=== PATIENT | male | born 1975 | race Caucasian/White ===

== ENCOUNTER 2019-03-02 06:23 | Emergency (ER) | payer OTHER ==
[2019-03-02 06:36] VITALS: BP 139/63; PULSE 94; RESP 18; TEMP 98.4
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
== END 2019-03-02 07:11 | disposition home or self-care (01) ==
LOC: EC 06:23
DX: H60.91 Unspecified otitis externa, right ear (principal); H92.21 Otorrhagia, right ear; E11.9 Type 2 diabetes mellitus without complications; E78.5 Hyperlipidemia, unspecified; I10 Essential (primary) hypertension; G47.30 Sleep apnea, unspecified; F17.200 Nicotine dependence, unspecified, uncomplicated; Z88.1 Allergy status to other antibiotic agents; Z88.8 Allergy status to other drugs, medicaments and biological substances; Z79.4 Long term (current) use of insulin; Z79.82 Long term (current) use of aspirin; Z79.899 Other long term (current) drug therapy; Z96.20 Presence of otological and audiological implant, unspecified; Z99.89 Dependence on other enabling machines and devices
CPT/HCPCS: 99282